=== PATIENT | female | born 1965 | race Caucasian/White ===

== ENCOUNTER → 2018-08-22 | Outpatient (CLI) | payer OTHER ==
[2018-08-22 08:37] LABS: BLOOD UREA NITROGEN 18 mg/dL (7-26); BUN/CREATININE RATIO 21 (6-25); CREATININE, SERUM 0.87 mg/dL (0.57-1.11); EST GLOMERULAR FILTRATION RATE > 60 ML/MIN (60-)
--- NOTE | 2018-08-22 09:58 | Diagnostic Imaging Report ---
EXAM: CT ABDOMEN AND PELVIS with IV CONTRAST DATE: 08/22/2018 Time stamp on Exam: 9:04 AM INDICATION: Left lower quadrant pain COMPARISON: None TECHNIQUE: The abdomen and pelvis were scanned using a multidetector helical scanner. Coronal and sagittal reformations were obtained. Routine protocol performed. IV Contrast: 100 cc of Isovue-370 Oral Contrast: Gastrografin intermixed with water Radiation Dose: Total DLP 519.27 mGy*cm Estimated effective dose: DLP x 0.015 x size factor Low-dose technique was utilized to maintain the lowest dose possible to the patient. FINDINGS: LOWER THORAX: Incompletely visualized 1.3 cm right breast density, likely a mass. Please correlate with mammogram if possible. LIVER: No masses with diffuse fatty infiltration of the liver. BILIARY: The gallbladder is unremarkable. No ductal dilatation. SPLEEN: No masses PANCREAS: No masses ADRENALS: No nodules KIDNEYS: Symmetric perfusion. No enhancing masses. No hydronephrosis. GI TRACT: No distention, wall thickening or evidence of obstruction. Scattered diverticula mainly within the left colon. The appendix is normal. VESSELS: Unremarkable PERITONEUM/RETROPERITONEUM: No free air or fluid LYMPH NODES: No lymphadenopathy REPRODUCTIVE ORGANS: Unremarkable BLADDER: Unremarkable SOFT TISSUES: Unremarkable BONES: Degenerative changes of the spine. IMPRESSION: 1. No acute abnormality within the abdomen or pelvis. 2. Fatty infiltration of the liver. 3. Scattered diverticula without findings of diverticulitis. 4. Incompletely visualized right breast density. Signed by: Dr. Reginaldo Salvador DO on 08/22/2018 9:55 AM
== END ==
LOC: CT 07:55
PROVIDERS: ATTEND Family Medicine
DX: R10.32 Left lower quadrant pain (principal)
CPT/HCPCS: 36415; 74177; 82565; 84520